=== PATIENT | female | born 1975 | race Caucasian/White ===

== ENCOUNTER 2021-01-18 18:27 | Inpatient (IN) | payer OTHER ==
[~2021-01-18] VITALS: Ht 167.6 cm; Wt 69.1 kg
[~2021-01-18 18:27] MED LIST: NO HOME MEDICATIONS
[2021-01-18] MEDS ORDERED: PREDNISONE20 MG PO (18:44)
[2021-01-18 19:44] LABS: BASO % 0.1 % (0.0-2.0); EOS # 0.1 (0.0-0.7); EOS % 0.7 % (0-4.0); GRAN # 5.4 (1.4-6.5); GRAN % 76.3 % (42.2-75.2); HEMATOCRIT 40.2 % (37.0-47.0); HEMOGLOBIN 13.5 g/dl (12.5-16.0); LYMPH # 1.2 (1.2-3.4); LYMPH % 16.8 % (20.0-51.0); MEAN CELL VOLUME 88 fl (80.0-100.0); MEAN CORPUSCULAR HEMOGLOBIN 30 pg (27.0-31.0); MEAN CORPUSCULAR HGB CONC 34 g/dl (33.0-37.0); MEAN PLATELET VOLUME 9.2 fl (7.4-10.4); MONO # 0.4 (0.1-0.6); MONO % 5.7 % (1.7-9.3); PLATELET COUNT 265 K/mm3 (130-400); RED BLOOD COUNT 4.57 M/mm3 (4.10-5.30); REDCELL DISTRIBUTION WIDTH-CV 12.6 % (11.5-14.5)
[2021-01-18 19:54] LABS: ALBUMIN 3.7 gm/dL (3.5-5.0); BILIRUBIN,TOTAL 0.7 mg/dL (0.0-1.0); CALCIUM 8.9 mg/dL (8.4-10.2); CREATININE, serum 0.76 (0.52-1.25); POTASSIUM 3.6 mmol/L (3.4-5.0); TOTAL PROTEIN 7.1 gm/dL (6.4-8.2)
[2021-01-19 00:22] VITALS: BP 112/64; PULSE 73; TEMP 99.1
--- NOTE | 2021-01-19 01:31 | NUR ---
PT TRANSPORTED TO MEDICAL FLOOR ROOM 306 BY MEDICAL FLOOR STAFF AT 0015. CONTACT/ DROPLET ISOLATION INITIATED. PT 02 3L NC, VSS, C/O PAIN TO TAIL BONE 11/30. NURSE WILL CONDUCT ASSESMENT AND REVIEW ORDERS. CALL LIGHT WITHIN REACH.
[2021-01-19 03:58] VITALS: BP 112/64; PULSE 88; TEMP 99.1
[2021-01-19 04:00] VITALS: BP 104/58; PULSE 88; TEMP 98.3
--- NOTE | 2021-01-19 05:53 | NUR ---
PT OXYGEN SATURATION DROPPED UPON TRANSFERRING TO BATHROOM. NURSE REMINDED PT TO CALL TO TRANSFER. 02 3L NC, SATURATION OVER 91 PERCENT. MEDICATIONS ADMINSTERED ORDERED. CALL LIGHT WITHIN REACH.
[2021-01-19 07:53] VITALS: BP 93/51; PULSE 78; TEMP 99
[2021-01-19 07:55] LABS: BASO % 0.1 % (0.0-2.0); EOS % 0.2 % (0-4.0); GRAN # 8.3 (1.4-6.5); GRAN % 88.2 % (42.2-75.2); HEMATOCRIT 40.8 % (37.0-47.0); HEMOGLOBIN 13.6 g/dl (12.5-16.0); LYMPH # 0.8 (1.2-3.4); LYMPH % 8.2 % (20.0-51.0); MEAN CELL VOLUME 87 fl (80.0-100.0); MEAN CORPUSCULAR HEMOGLOBIN 29 pg (27.0-31.0); MEAN CORPUSCULAR HGB CONC 33 g/dl (33.0-37.0); MEAN PLATELET VOLUME 9.1 fl (7.4-10.4); MONO # 0.2 (0.1-0.6); PLATELET COUNT 299 K/mm3 (130-400); REDCELL DISTRIBUTION WIDTH-CV 12.5 % (11.5-14.5)
--- NOTE | 2021-01-19 08:00 | NUR ---
Nurse assisted patient to the bathroom, standby assist. Patient stating that she is dizzy. A&Ox4. VSS 3L NC O@. Reporting SOB with exertion. IV CDI, fluids infusing. No further needs expressed from the patient. Call light within reach
[2021-01-19 08:03] LABS: CALCIUM 8.4 mg/dL (8.4-10.2); CREATININE, serum 0.82 (0.52-1.25); POTASSIUM 3.8 mmol/L (3.4-5.0)
--- NOTE | 2021-01-19 14:37 | NUR ---
SW called patient to complet intake. Patient states that she lives in [place] with her children. POC would be her parents Pauline and Dusty Denise at [phone]. Patient states that she does not utilize any DME and is independent with ADL's. Patient states that her PCP is Dr. Blevins and her [facility] is [facility]. Patient states that she plans to return to her home in [place] up on discharge and has not current questions or concerns with doing so. SW will continue to follow. Plan: Home in [place]
[2021-01-19 16:00] VITALS: BP 95/62; PULSE 67; TEMP 98.2
--- NOTE | 2021-01-19 17:26 | NUR ---
Patient had an uneventful day. Was dizzy in the beginning of shift, but no longer reporting dizziness. Has been independent in the room. A&Ox4. VSS 2L NC O2. Denies pain and discomfort. States overall the she is feeling better. IV CDI, fluids infusing. No further needs expressed from the patient. Call light within reach
[2021-01-19 20:00] VITALS: BP 106/67; PULSE 75; TEMP 98.1
[2021-01-20] VITALS (7 sets, daily range): BP systolic 89–116; BP diastolic 61–78; PULSE 58–80; TEMP 97.7–98.7
--- NOTE | 2021-01-20 00:18 | NUR ---
SHIFT ASSESMENT COMPLETE, MEDICATIONS ADMINISTERED ORDERED. PT DENIES SOB, PAIN, N/V/D. 02 CURRENTLY 3L NC. VSS. ALL BELONGINGS WITHIN REACH. CALL LIGHT WITHIN REACH.
--- NOTE | 2021-01-20 07:13 | NUR ---
Patient resting in bed at this time. O2 running at 3L via nasal cannula. NS running at 75 ml/hr. Patient denies any pain, discomfort, SOA, or any further needs at this time. Will continue to monitor. Call light in reach.
--- NOTE | 2021-01-20 09:39 | NUR ---
Scheduled medications given. Assessments preformed. Upon ausculation, right lower lobe was diminished and insp. and exp. wheezes were noted. Patient did have an unproductive cough. RT informed this RN that they were not going to attempt to ween her from O2 due to desaturation during exertion. Patient denies any pain, discomfort, SOA, or futher needs at this time. Does C/O increased fatigue this AM. Will continue to closely monitor. VSS. Call light in reach.
[2021-01-20 12:44] LABS: BILIRUBIN UNCONJUGATED 0.2 mg/dL (0.0-1.1); BILIRUBIN,TOTAL 0.2 mg/dL (0.0-1.0); TOTAL PROTEIN 6.1 gm/dL (6.4-8.2)
--- NOTE | 2021-01-20 16:53 | NUR ---
Patient has had an uneventful day. IV fluids DC'd. Patient continues to be on 3 L via nasal cannula. Continues to desat during exertion. Patient has denied any pain, discomfort, or SOA at rest. Will continue to monitor. Call light in reach.
--- NOTE | 2021-01-20 22:05 | NUR ---
Shift assessment completed. Patient A/Ox4. Patient denies any pain or discomfort. Patient reports SOB upon getting up and go to bathroom. Patient currently on 3L via NC. Breathing even and unlabored. No SOB noted while at rest in bed. Occasional non-productive cough noted. Patient denies N/V or diarrhea at this time. All scheduled meds given per OCT. PRN Robitussin given for cough. Call light within reach. Patient denies any needs at this time.
[2021-01-21 03:36] VITALS: BP 109/67; PULSE 66; TEMP 98.7
--- NOTE | 2021-01-21 05:35 | NUR ---
Patient slept well over the night. No acute distress noted. Call light within reach.
[2021-01-21 06:03] LABS: BASO % 0.2 % (0.0-2.0); EOS # 0.1 (0.0-0.7); EOS % 0.8 % (0-4.0); GRAN # 8.5 (1.4-6.5); GRAN % 82.8 % (42.2-75.2); HEMOGLOBIN 12.1 g/dl (12.5-16.0); LYMPH # 1.1 (1.2-3.4); LYMPH % 10.4 % (20.0-51.0); MEAN CELL VOLUME 89 fl (80.0-100.0); MEAN CORPUSCULAR HEMOGLOBIN 30 pg (27.0-31.0); MEAN CORPUSCULAR HGB CONC 33 g/dl (33.0-37.0); MEAN PLATELET VOLUME 9.5 fl (7.4-10.4); MONO # 0.5 (0.1-0.6); MONO % 4.8 % (1.7-9.3); PLATELET COUNT 371 K/mm3 (130-400); RED BLOOD COUNT 4.06 M/mm3 (4.10-5.30); REDCELL DISTRIBUTION WIDTH-CV 12.8 % (11.5-14.5)
[2021-01-21 06:19] LABS: CALCIUM 8.4 mg/dL (8.4-10.2); CREATININE, serum 0.59 (0.52-1.25); POTASSIUM 3.9 mmol/L (3.4-5.0)
[2021-01-21 06:25] LABS: HEMATOCRIT 36.3 % (37.0-47.0)
--- NOTE | 2021-01-21 06:56 | NUR ---
Patient asleep in bed at this time. O2 running at 3L via nasal cannula. No signs of pain, discomfort, or further needs at this time. Will continue to monitor. Call light in reach.
[2021-01-21 09:42] VITALS: BP 106/62; PULSE 73; TEMP 97.6
--- NOTE | 2021-01-21 11:48 | NUR ---
Scheduled medications given, assessments preformed. Patient is currently on 2L of O2 and SATing 92%. Upon auscultation, RLL was diminished. All other edwards clear to auscultation. Patient is still experiencing SOA with exertion, but states that she does not get dizzy or lightheaded. Patient became distressed while this RN was in the room. States that she wants to go home and is frustrated that she has not been able to do so. Talked with patient and was able to calm her down. Constance was called regarding plan of care. He will visit with her shortly. VSS. Will continue to monitor. Call light in reach.
[2021-01-21 12:07] VITALS: BP 109/66; PULSE 77; TEMP 99.1
--- NOTE | 2021-01-21 16:51 | NUR ---
IV site in right has become painful for patient, does not with to use. Patient stated that we have one shot to get another IV placed. MUKUL Encinas attempted, patient stated that it was to painful and she did not want one placed. That she has been poked too many times. Discussed with patient that she needed one to recieve Remdesivir. Patient stated that she did not want the medication. Dr. Gallardo notified. He spoke with the patient and confirmed her decision. Will hold Remdesivir for this evening and monitor patient. Exercise oximetery ordered.
[2021-01-21 17:00] VITALS: BP 110/64; BP 110/647; PULSE 67; TEMP 98.9
--- NOTE | 2021-01-21 18:47 | NUR ---
Patient sitting up in bed and having dinner. No acute distress noted. Call light within reach.
[2021-01-21 20:15] VITALS: BP 107/63; PULSE 75; TEMP 99
--- NOTE | 2021-01-21 20:35 | NUR ---
Shift assessment completed. Patient alert and oriented. Patient denies any pain or discomfort. Denies SOB or dyspnea while at rest. Patient reports SOB with exertion. SPO 2 89-90% on 2L via NC. Encouraged deep breathing. Increased oxygen to 3L. SPO2 91-92% on 3L via NC. Occasional non-productive cough noted. PRN Robitussin given for cough. Scheduled meds given. Right hand IV site unable to flush with NS. Patient refused all IV meds. IV Rocephin unable to given due to refusal. Right hand IV removed and covered with band-aid. Patient refused to get new IV inserted. Call light within reach.
[2021-01-21 23:59] VITALS: BP 114/71; PULSE 56; TEMP 98.5
[2021-01-22 05:17] VITALS: BP 115/70; PULSE 57; TEMP 98.4
--- NOTE | 2021-01-22 07:23 | NUR ---
This nurse knocks on door and checks in on pt from door. Pt resting in bed with eyes closed, resp even and unlabored with O2 at 3 L/min via NC. Call light in reach.
--- NOTE | 2021-01-22 08:20 | NUR ---
Assessment complete. Pt resting in bed with eyes closed, resp even and unlabored. O2 down to 2 L/min via NC. Physical assessment unremarkable. No needs reported. Call light in reach.
[2021-01-22 08:30] VITALS: BP 116/73; PULSE 85; TEMP 98.8
[2021-01-22 09:33] LABS: ALBUMIN 3.3 gm/dL (3.5-5.0); BILIRUBIN UNCONJUGATED 0.3 mg/dL (0.0-1.1); BILIRUBIN,TOTAL 0.3 mg/dL (0.0-1.0); TOTAL PROTEIN 6.6 gm/dL (6.4-8.2)
[2021-01-22] MEDS ORDERED: ELIQUIS 5MG PO (10:27)
[2021-01-22] MEDS ORDERED: DECADRON6 MG PO (10:29)
[2021-01-22] MEDS ORDERED: ROBITUSSIN DM 105 ML PO (10:30)
[2021-01-22 11:19] VITALS: BP 112/64; PULSE 65; TEMP 98.6
--- NOTE | 2021-01-22 11:40 | NUR ---
The patient is to discharge back home with her family today, 01/22. An exercise oximetry was ordered and the patient qualified for 2 liters of oxygen. ALESSIA contacted the patient to update and informed her of the different DME companies. The patient chose [facility]. ALESSIA contacted and faxed and emailed the oxygen order Shereen at [facility]. Shereen reports that they will only be able to deliver a portable oxygen tank to the patient and then the patient will have to orange picking supervisor the rest of the supplies at their office, due to her being COVID positive. She states that they can give her instructions out in their parking lot. ALESSIA updated the patient. The patient is agreeable to this. ALESSIA updated the patient's RN. No additional needs at this time.
--- NOTE | 2021-01-22 13:58 | NUR ---
Prescriptions for discharge called in to [facility] per pt's request. Message left for pharmacy.
--- NOTE | 2021-01-22 14:30 | NUR ---
Discharge instructions reviewed with pt regarding new medications, follow-up appointment and O2 use. Pt verbalizes understanding, questions invited and answsered. Pt discharged home, escorted out of facility via WC accompanied by this nurse and POND SAWYER, pt's family providing ride home.
== END 2021-01-22 14:40 | disposition home or self-care (01) | DRG 177 ==
LOC: COL.ER 18:27 → MEDICAL 22:27
PROVIDERS: Nurse Practitioner; Student in an Organized Health Care Education/Training Program; ADMIT Hospitalist
PROC: XW033E5 Introduction of Remdesivir Anti-infective into Peripheral Vein, Percutaneous Approach, New Technology Group 5 (ICD-10-PCS; principal; 2021-01-18)
DX: U07.1 COVID-19 (principal); J12.82 Pneumonia due to coronavirus disease 2019; J96.01 Acute respiratory failure with hypoxia; I26.99 Other pulmonary embolism without acute cor pulmonale; I95.9 Hypotension, unspecified; R94.5 Abnormal results of liver function studies; Z88.1 Allergy status to other antibiotic agents
CPT/HCPCS: 99223-AI; 99232-AI; 99233-AI; 99239; J0696; J1650; J7030; J7050; J8540; Q9967